=== PATIENT | female | born 1970 | race Caucasian/White ===

== ENCOUNTER 2017-05-01 04:50 | Emergency (ER) | payer OTHER ==
[~2017-05-01] VITALS: Ht 160 cm; Wt 108.9 kg
[~2017-05-01 04:50] MED LIST: CITALOPRAM20 MG PO; DOK100 M1 PO; HYGROTON 25MG T25 MG PO; IBUPROFEN800 MG PO; LEVOTHYROXIN0.137 MG PO; LEVOTHYROXINE0.15 MG PO; LISINOPRIL-HYDR1 TA1 PO; MEDROL DOSEPAK1 PAC PO; METFORMIN HYD1000 M1 PO; METOPROLOL TART50 MG PO; MOTRIN800 MG PO; NATURAL IRON65 MG PO; NEXIUM 40MG40 MG PO; PANTOPRAZOLE SO40 MG PO; PERCOCET 325 MG1 TA2 PO; ULTRAM50 M1 PO; VITAB121000 PO
--- NOTE | 2017-05-01 05:10 | ED NECK/BACK PAIN COMPLAINT ---
History of Present Illness General Chief Complaint: General Adult Stated Complaint: " I CANT GET A DEEP BREATH AND MY JAW HURTS" Source: patient Exam Limitations: no limitations Vital Signs & Intake/Output Vital Signs & Intake/Output Vital Signs Date Time Temp Pulse Resp B/P B/P Pulse O2 O2 Flow FiO2 Mean Ox Delivery Rate 05/01 0657 100/56 05/01 0645 96.5 69 20 98 Room Air 05/01 0459 96.8 77 22 133/65 97 Allergies Coded Allergies: morphine (Severe, "FEELS LIKE I CAN'T BREATHE" 07/26/16) Triage Note: PT TO ED C/O PAIN FROM BOTH SIDES OF LOWER JAW DOWN INTO HER CHEST. HAS BEEN CONSTANT SINCE THE DAY BEFORE YESTERDAY, GETTING WORSE OVER TIME PAIN CRAMPING IN NATURE. WENT TO PCP THE DAY BEFORE YESTDAY, WAS GIVEN A MUSCLE RELAXER WHICH HELPED THE FIRST DAY, BUT DIDN'T HELP YESTERDAY. TAKES BREATHE AWAY. PAIN WORSE WHEN TAKING A DEEP BREATH. DR ROSENBERG AT BEDSIDE TO [facility] PT Triage Nurses Notes Reviewed? yes HPI: Patient states that she has had an aching tightness pain on both sides were draw that radiates down the front of her neck and into her upper chest. The patient has been there for 2 days. Patient's her primary care physician who put her on a muscle relaxer. Patient states the first day the muscularis health however last night into this morning there was no relief of the muscle. Patient states that the pain increases when she moves or takes a deep breath. Patient states that she feels that she cannot lay down because she feels a pulling sensation on that area. There is no fevers or chills. No difficulty swallowing. There is no significant difficulty breathing except as noted above. Patient denies any chest pain. PATIENT denies any recent Dental procedure. (CHET EPPS,EDVIN Scott) Reconcile Medications Chlorthalidone (Hygroton 25MG Tablet) 25 MG TABLET 0.5 TAB PO DAILY WATER RETENTION (Reported) Citalopram Hydrobromide (Citalopram HBr) 20 MG TABLET 1 TAB PO BID DEPRESSION (Reported) Cyanocobalamin (Vitamin B-12) 1,000 MCG TAB 1 TAB PO DAILY V (Reported) Esomeprazole (Nexium) 40 MG CAPSULE. 1 CAP PO DAILY HEARTBURN (Reported) FERROUS SULFATE (IRON) 325 MG (65 MG IRON) TABLET 1 TAB PO DAILY SUPPLEMENT ( Reported) Ibuprofen 600 MG TABLET 1 TAB PO Q6PRN PRN pain with food Ibuprofen (Motrin) 800 MG TAB 1 TAB PO TID PRN PAIN SCALE 5-10 Levothyroxine Sodium 0.15 MG TAB 0.15 MG PO DAILY AC THYROID (Reported) LISINOPRIL/HYDROCHLOROTHIAZIDE (Lisinopril-Hctz 20-12.5 MG Tab) 20 MG-12.5 MG TABLET 1 TAB PO DAILY HIGH BLOOD PRESSURE (Reported) METFORMIN HCL (Metformin HCl ER) 1,000 MG TAB.ER.24 1 TAB PO DAILY DIABETES ( Reported) Methylprednisolone. (Medrol) 1 PAC PAC 1 PAC PO TAPER ANTI-INFLAMMATORY Metoprolol Tartrate 50 MG TABLET 0.25 TAB PO BID HIGH BLOOD PRESSURE ( Reported) Tramadol HCl (Ultram) 50 MG TABLET 1-2 TAB PO Q6P PRN PAIN Tramadol HCl (Ultram) 50 MG TABLET 1-2 TAB PO Q6PRN PRN severe pain (BIRD EPPS,RALPH) Past History Travel History Traveled to [place] past 21 day No Medical History Any Pertinent Medical History? 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 No (CHET EPPS,EDVIN Scott) Review of Systems Review of Systems Constitutional: Reports: no symptoms. Eyes: Reports: no symptoms. Ears, Nose, Throat, Mouth: Reports: see HPI. Respiratory: Reports: see HPI, short of breath. Cardiovascular: Reports: see HPI, chest pain. Gastrointestinal/Abdominal: Reports: no symptoms. Musculoskeletal: Reports: no symptoms. Skin: Reports: no symptoms. Neurological/Psychological: Reports: no symptoms. All Other Systems: Reviewed and Negative (EDVIN ROSENBERG MD) Physical Exam Physical Exam General Appearance: well developed/nourished, alert, awake, anxious, moderate distress Head: atraumatic, normal appearance Eyes: Bilateral: PERRL, EOMI. Ears, Nose, Throat, Mouth: hearing grossly normal, moist mucous membrane Neck: normal inspection, limited range of motion, muscle spasm, pain Respiratory: normal breath sounds, chest non-tender, no respiratory distress, lungs clear Cardiovascular: regular rate/rhythm, normal peripheral pulses Gastrointestinal: normal bowel sounds, soft, non-tender, no organomegaly Back: normal inspection, normal range of motion, no vertebral tenderness Extremities: non-tender, normal range of motion Neurologic/Psych: no motor/sensory deficits, awake, alert, oriented x 3, normal gait, normal mood/affect Skin: intact, normal color, warm/dry (CHET EPPS,EDVIN Scott) Progress Differential Diagnosis: aortic dissection, myofascial strain, ABCESS, VIBHA'S ANGINA Plan of Care: Orders Procedure Date/time Status Durable Medical Equipment 05/01 0745 Active TROPONIN LEVEL 05/01 0509 Complete COMPREHENSIVE METABOLIC PANEL 05/01 0509 Complete CBC WITHOUT DIFFERENTIAL 05/01 0509 Complete EKG 05/01 0456 Active Laboratory Tests 05/01/17 0518: Anion Gap 11, Estimated GFR > 60, BUN/Creatinine Ratio 26.7 H, Glucose 99, Calcium 9.9, Total Bilirubin 0.7, AST 15, ALT 26, Alkaline Phosphatase 59, Troponin I < 0.01, Total Protein 6.5, Albumin 4.2, Globulin 2.3, Albumin/ Globulin Ratio 1.8, CBC w Diff NO MAN DIFF REQ, RBC 4.31, MCV 82.7, MCH 27.6, RDW 13.9, MPV 9.8, Gran % 60.2, Lymphocytes % 30.0, Monocytes % 8.0, Eosinophils % 1.2, Basophils % 0.6, Absolute Granulocytes 5.7, Absolute Lymphocytes 2.9, Absolute Monocytes 0.8 H, Absolute Eosinophils 0.1, Absolute Basophils 0.1, PUBS MCHC 33.5 Diagnostic Imaging: Viewed by Me: CT Scan. Discussed w/RAD: CT Scan. Initial ED EKG: NSR, NO STT CHANGES, NO CHENAGE FROM PRIOR EKG Prior EKG: unchanged Rhythm Strip: normal sinus rhythm Hand-Off Endorsed To: RALPH PANG MD Endorsed Time: 0700 Pending: CT Comments: No relief from IV Toradol. Will give IV Dilaudid, which the patient states that she has had in the past and that has worked for her. (CHET EPPS,EDVIN Scott) Radiology Impression: no acute abnormality (RALPH PANG MD) Departure Departure Clinical Impression Primary Impression: Neck pain Referrals: EDWIN SILVERMAN MD (PCP/Family) Departure Forms: Customer Survey General Discharge Information (EDVIN ROSENBERG MD) Departure Time of Disposition: 734 Disposition: HOME OR SELF CARE Condition: Stable Prescriptions: Current Visit Scripts Ibuprofen 1 TAB PO Q6PRN PRN pain #50 TAB with food Tramadol HCl (Ultram) 1-2 TAB PO Q6PRN PRN severe pain #30 TAB (RALPH PANG MD) Ibuprofen 1 TAB PO Q6PRN PRN pain #50 TAB with food Tramadol HCl (Ultram) 1-2 TAB PO Q6PRN PRN severe pain #30 TAB (RALPH PANG MD)
[2017-05-01 05:30] LABS: ABSOLUTE BASOPHIL COUNT 0.1 /CUMM (0.0-0.2); ABSOLUTE EOSINOPHIL COUNT 0.1 /CUMM (0.0-0.7); ABSOLUTE GRANULOCYTE CT 5.7 /CUMM (1.4-6.5); ABSOLUTE LYMPH COUNT 2.9 /CUMM (1.2-3.4); ABSOLUTE MONOCYTE COUNT 0.8 /CUMM (0.10-0.60); BASOPHIL % 0.6 % (0.0-2.0); EOSINOPHIL % 1.2 % (0-5); GRANULOCYTE % 60.2 % (42.2-75.2); HEMATOCRIT 35.6 % (37-47); MEAN CORPUSCULAR HGB 27.6 PG (27.0-31.0); MEAN CORPUSCULAR HGB CONC 33.5 G/DL (33.0-37.0); MEAN CORPUSCULAR VOLUME 82.7 FL (81.0-99.0); MEAN PLATELET VOLUME 9.8 FL (7.4-10.4); PLATELET COUNT 146 /CUMM (130-400); RBC DISTRIBUTION WIDTH 13.9 % (11.5-14.5); RED BLOOD CELL CT 4.31 /CUMM (4.20-5.40); WHITE BLOOD CELL COUNT 9.6 /CUMM (4.8-10.8)
--- NOTE | 2017-05-01 07:05 | CT SCAN REPORT ---
EXAMINATION: CT NECK WITH CONTRAST CLINICAL INFORMATION: Anterior neck pain COMPARISON: 06/21/2015 TECHNIQUE: 94 mL Optiray 320 intravenous contrast was utilized. Multidetector helical imaging was performed through the neck. Coronal and sagittal reformatted images were created. DLP: 427.91 mGy-cm FINDINGS: The nasopharynx, oropharynx, and hypopharynx are patent. No mucosal pharyngeal abnormality is seen. The parapharyngeal fat is preserved. No significant subcutaneous edema or soft tissue abscess is seen. The saxophone teacher, parotid, and submandibular spaces appear normal and symmetric bilaterally. Several bilateral subcentimeter cervical lymph nodes are seen without adenopathy. The carotid vasculature is patent. Patient appears status post right thyroidectomy. The lung apices are clear. Visualized portions of the brain parenchyma are unremarkable. The mastoid air cells are well aerated. The paranasal sinuses are well-aerated. The visualized orbits are unremarkable. The mandibular condyles are well-seated in the condylar fossa. No acute fracture is seen. IMPRESSION: No acute findings identified in the neck. No significant edema or soft tissue abscess is seen.
[2017-05-01] MEDS ORDERED: IBUPROFEN600 M1 PO (07:37)
[2017-05-01] MEDS ORDERED: ULTRAM50 M1 PO (07:37)
[2017-05-01 08:22] VITALS: BP 96/56
== END 2017-05-01 08:25 ==
LOC: ERH 04:50
PROVIDERS: Emergency Medicine
DX: M54.2 Cervicalgia (principal); R07.9 Chest pain, unspecified
CPT/HCPCS: 93005; 93010; 96361; 96374; 96375; 99291; J1885